=== PATIENT | male | born 1990 | race Caucasian/White ===

== ENCOUNTER 2019-10-08 15:18 | Inpatient (IN) | payer SELFPAY ==
[~2019-10-08] VITALS: Ht 175.3 cm; Wt 68.5 kg
[~2019-10-08 15:18] MED LIST: ALBUTEROL SULF8.5 G1 INH; CLONIDINE0.1 MG GT
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
[2019-10-08 15:30] VITALS: BP 126/84
[2019-10-08] MEDS ORDERED: Thiamine HCl 100 MG in D5W 55 ML IVPB ONE (15:30)
[2019-10-08] MEDS ORDERED: Omnipaque-300 100ml vial INJ PRN (15:30)
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
[2019-10-08] MEDS ORDERED: LORazepam Inj 2mg/ml 1ml IM ONE (15:45)
[2019-10-08] MEDS ORDERED: LORazepam Inj 2mg/ml 1ml IV ONE (15:45)
--- NOTE | 2019-10-08 16:00 | NUR ---
ED Nurse Note: Ativan IM administered. Patient refused Zyprexa, JAMESD notified.
--- NOTE | 2019-10-08 16:20 | NUR ---
ED Nurse Note: Patient refusing to cooperate and not allowing to start IV. ERMD notified
--- NOTE | 2019-10-08 16:25 | NUR ---
ED Nurse Note: Patient states he cannot provide urine now. Urinal left at bedside
[2019-10-08] MEDS ORDERED: Albuterol ud Inhalation HHN ONE (16:45)
--- NOTE | 2019-10-08 16:50 | NUR ---
ED Nurse Note: Patient taken to CT
--- NOTE | 2019-10-08 17:01 | NUR ---
ED Nurse Note: Patient returned from CT
--- NOTE | 2019-10-08 17:09 | NUR ---
ED Nurse Note: Covid swab collected and sent to lab
--- NOTE | 2019-10-08 17:49 | Diagnostic Imaging Report ---
Indication: Increased lower abdominal pain and discomfort Technique: Spiral acquisitions obtained through the abdomen and pelvis. No oral contrast utilized, per emergency room physician request No IV contrast utilized, per referring physician request.. Multiplanar reconstructions were generated. Total dose length product 251 mGycm. CTDIvol(s) 4 mGy. Dose reduction achieved using automated exposure control Comparison: None Findings: Exam is very limited, due to lack of oral enteric contrast, diffuse soft tissue edema limiting enteric soft tissue contrast resolution. No evidence of diverticulosis or diverticulitis. The appendix is not definitely visualized, but no findings to suggest acute appendicitis are evident. There is a small amount of free intraperitoneal fluid. The distal esophagus demonstrates mild wall thickening. The stomach is very distended. The duodenum is also distended. The proximal jejunum is distended. Not there is diffuse edema of the mesenteric fat particularly fluid-filled, however. No definite transition point is demonstrated. Lack of IV contrast limits assessment of the solid organs. The liver, gallbladder, bile ducts, pancreas, spleen, adrenals, kidneys are unremarkable. The bladder is mildly distended. There is bilateral inguinal adenopathy. There is bilateral iliac chain and retroperitoneal lymphadenopathy. There is mesenteric root lymphadenopathy. There is a moderate left pleural effusion. The lung bases are largely clear except for some compressive atelectasis at the left lung base. There is thoracolumbar dextroscoliotic deformity. There is diffuse edema of the subcutaneous fat. Impression: Very limited exam, as described Evidence of anasarca, with diffuse edema of the subcutaneous and mesenteric fat, as well as left pleural effusion and ascites fluid. Distended stomach, duodenum, and proximal jejunum, without definite downstream transition point. Findings could represent partial small bowel obstruction, or could be on the basis of inflammatory changes. Extensive lymphadenopathy, with enlarged bilateral inguinal, bilateral pelvic, retroperitoneal, and mesenteric root lymph nodes. This could be neoplastic or inflammatory Scoliosis Distended bladder Mildly thick-walled distal esophagus, could indicate esophagitis The CT scanner at [facility] is accredited by the [employer] [place] [employer] and the scans are performed using protocols designed to limit radiation exposure to as low as reasonably achievable to attain images of sufficient resolution adequate for diagnostic evaluation.
[2019-10-08 17:54] VITALS: BP 128/81
--- NOTE | 2019-10-08 18:30 | NUR ---
ED Nurse Note: Called lab to draw blood, patient refused blood draw when economic development coordinator at bedside. ERMD aware. Patient resting in bedd currently with eyes closed
--- NOTE | 2019-10-08 19:18 | NUR ---
HAND-OFF: Report given to Radha SANCHEZ.
--- NOTE | 2019-10-08 19:28 | NUR ---
Nurse Note: Report received from LAURA White. Pt asleep, arousable, no signs of distress. Pt now attached to library monitor. Pt is refusing all medical treatment; pt unwilling to cooperate. Pt stated "you do not need my blood. Just leave me alone." Pt refuses to wear mask. Pt denies pain. Pt appears unkept, poor hygene. All safety measures met; will conitnue to ian.
[2019-10-08 19:35] VITALS: BP 137/88
[2019-10-08 20:58] LABS: BILIRUBIN, URINE NEGATIVE (NEGATIVE); COLOR,URINE PALE YELLOW; GLUCOSE, URINE (UA) 3+ (NEGATIVE); KETONES,URINE 1+ (NEGATIVE); LEUKOCYTE ESTERASE ,URINE NEGATIVE (NEGATIVE); NITRITE,URINE NEGATIVE (NEGATIVE); PH,URINE 6.5 (4.5-8.0); PROTEIN,URINE 4+ (NEGATIVE); UROBILINOGEN,URINE NORMAL MG/DL (0.0-1.0)
[2019-10-08 20:59] LABS: HEMATOCRIT 22.6 % (42.0-52.0); HEMOGLOBIN 7.2 G/DL (14.2-18.0); MEAN CORPUSCULAR VOLUME 76 FL (80-99); PLATELET COUNT 307 K/UL (150-450); RED BLOOD COUNT 2.97 M/UL (4.70-6.10); RED CELL DISTRIBUTION WIDTH 19.7 % (11.6-14.8); WHITE BLOOD COUNT 8.6 K/UL (4.8-10.8)
[2019-10-08 21:00] LABS: APPEARANCE,URINE SLIGHTLY CLOUDY
--- NOTE | 2019-10-08 21:00 | NUR ---
Nurse Note: Pt arousable, denies pain, n/v, acute resp distress. Pt agrees to blood draw, IV access, medical treatment. 24 gauge IV established on RT AC; patent. Blood and urine collected; sent to lab. VSS. All safety measures met; will continue to monitor.
[2019-10-08 21:11] LABS: ANION GAP 8 mmol/L (5-15); BLOOD UREA NITROGEN 18 mg/dL (7-18); CALCIUM 7.2 MG/DL (8.5-10.1); CARBON DIOXIDE 20 MMOL/L (21-32); CHLORIDE 113 MMOL/L (98-107); CREATININE 3.4 MG/DL (0.55-1.30); POTASSIUM 3.1 MMOL/L (3.5-5.1); SODIUM 141 MMOL/L (136-145)
[2019-10-08 21:15] LABS: ALANINE AMINOTRANSFERASE 7 U/L (12-78); ALBUMIN < 0.6 G/DL (3.4-5.0); ALKALINE PHOSPHATASE 93 U/L (46-116); ASPARTATE AMINO TRANSFERASE 18 U/L (15-37); BILIRUBIN,TOTAL < 0.1 MG/DL (0.2-1.0)
[2019-10-08 22:10] VITALS: BP 104/86
--- NOTE | 2019-10-08 22:26 | NUR ---
Nurse Note: Gave report to LAURA Doty for continuity of care. All safety measures met; will endorse care.
[2019-10-08] MEDS ORDERED: LORazepam 1mg tab ORAL PRN (22:45)
[2019-10-08] MEDS: Heparin 5000 units/ml inj SUBQ SCH (22:45)
[2019-10-08] MEDS ORDERED: Morphine Sulfate 2mg/ml Inj(IV/IM USE ONLY) IVP PRN (22:45)
[2019-10-08] MEDS ORDERED: Miralax 17gm pkt ORAL PRN (22:45)
[2019-10-08] MEDS ORDERED: Zolpidem 5mg tab ORAL PRN (22:45)
--- NOTE | 2019-10-08 23:10 | NUR ---
NURSE NOTES: Patient admitted from ER via gurney. AOx3, appears disheveled. Belongings verified including own wheelchair. Refused complete skin assessment at this time, wants to be covered completely with blanket. Visible skin appears very dry with skin flaking and covered with black dirt. Patient oriented to new room and unit. Urinal and call light provided. Instructed to call for assistance. Admission orders entered by Dr. Olmstead. Noted and will carry out.
[2019-10-08] MEDS ORDERED: dilaudid ORAL (23:18)
[2019-10-09] VITALS: BP 129/81
[2019-10-09 04:00] VITALS: BP 121/68
[2019-10-09] MEDS: Morphine Sulfate 4mg/ml Inj (IV USE ONLY) IVP PRN ×2 (04:02→21:03)
--- NOTE | 2019-10-09 07:26 | NUR ---
NURSE HAND-OFF: Important Events on Shift:[new admit, medicated for pain and anxiety] Patient Status: [stable, sleeping] Diet: [Full liquid] Pending Orders: [] Pending Results/Labs:[refused lab draw in AM] Pending MD notification:[] Latest Vital Signs: Temperature 98.1 , Pulse 110 , B/P 121 /68 , Respiratory Rate 22 , O2 SAT 98 , Room Air, O2 Flow Rate . Vital Sign Comment: [stable] Latest Sow Fall Score: 35 Fall Risk: Medium Risk Safety Measures: Call light Within Reach, Bed Alarm Zone 1, Side Rails Side Rails x2, Bed position Low and Locked. Fall Precautions: Patient Fall Education Report given to [J Luis].
--- NOTE | 2019-10-09 07:43 | NUR ---
NURSE NOTES: patient is in the bed asleep and arousable. respiration is even and unlabored. patient stated that he wants to sleep and rest. no acute distress noted. call light is within reach.
[2019-10-09] MEDS: Heparin 5000 units/ml inj SUBQ SCH ×3 (09:00→21:02)
--- NOTE | 2019-10-09 09:10 | NUR ---
NURSE NOTES: Phlebotomy at the bed side, attempted to draw blood for AM lab. pt refuses. RN encouraged pt to allow blood draw, pt continues to refuse, states "I don't want that." RN encouraged pt to verbalize his feelings and concerns, says "I don't want it today."
--- NOTE | 2019-10-09 09:35 | NUR ---
NURSE NOTES: PT refuses CT scan, says "come back tomorrow morning." RN educated pt the purpose of receiving ct scan as ordered, pt is non-compliant.
--- NOTE | 2019-10-09 10:00 | NUR ---
NURSE NOTES: PT refuses all AM medications x 3. Benefits of medications explained to patient. pt remained non-compliant.
--- NOTE | 2019-10-09 10:20 | NUR ---
NURSE NOTES: Dr Dyllan Olmstead made rounds and saw pt. notified doctor about patient's non-compliant with care. MD says "if pt does not comply, there is no point being in the hospital," "continue to monitor for now."
[2019-10-09 12:00] VITALS: BP 129/83
--- NOTE | 2019-10-09 13:29 | Diagnostic Imaging Report ---
EXAM: US Duplex Bilateral Lower Extremities Veins CLINICAL HISTORY: SCREEN TECHNIQUE: Real-time duplex ultrasound scan of the bilateral lower extremity veins integrating B-mode two-dimensional vascular structure, Doppler spectral analysis, color flow Doppler imaging and compression. COMPARISON: No relevant prior studies available. FINDINGS: Right deep veins: Unremarkable. No DVT in the right common femoral, femoral, proximal deep femoral or popliteal veins. The veins demonstrate normal color flow, are normally compressible, with normal phasic flow and/or augmentation response. Right superficial veins: Unremarkable. Left deep veins: Unremarkable. No DVT in the left common femoral, femoral, proximal deep femoral or popliteal veins. The veins demonstrate normal color flow, are normally compressible, with normal phasic flow and/or augmentation response. Left superficial veins: Unremarkable. Soft tissues: No popliteal cyst. IMPRESSION: No evidence of DVT in the visualized venous segments of bilateral lower extremities.
--- NOTE | 2019-10-09 13:39 | Diagnostic Imaging Report ---
EXAM: US Retroperitoneal Complete, Renal CLINICAL HISTORY: RENAL-A TECHNIQUE: Real-time complete ultrasound of the retroperitoneum with image documentation. COMPARISON: No relevant prior studies available. FINDINGS: Aorta: Visualized portions of the aorta appear unremarkable. Inferior vena cava: Visualized portions of the IVC appear unremarkable. Right kidney: Right kidney measures 13.1 x 5.9 x 4.8 cm. Echogenic parenchyma. Normal cortical thickness. No visible parenchymal lesions. No visible stones. No hydronephrosis. Left kidney: Left kidney measures 11.9 x 5.6 x 5.0 cm. Echogenic parenchyma. Normal cortical thickness. No visible parenchymal lesions. No visible stones. No hydronephrosis. Bladder: Urinary bladder has a prevoid volume of 537 cc. Free fluid: Mild volume free fluid/ascites. Pleural space: Bilateral pleural effusions incidentally noted. IMPRESSION: 1. Bilateral echogenic kidneys, consistent with medical renal disease. No hydronephrosis. 2. Mild volume free fluid/ascites. 3. Bilateral pleural effusions.
--- NOTE | 2019-10-09 13:53 | NUR ---
NURSE NOTES: pt is on full-liquid diet, requested for a sandwich. Called Dr. Dyllan Olmstead and made aware. MD ordered to change diet to regular mechanical soft-easy chew diet. order is noted and communicated.
--- NOTE | 2019-10-09 15:00 | NUR ---
NURSE NOTES: Pt stated that he wants to be discharged, called Dr. Olmstead on phone and made aware. MD says "give him AMA paper to sign." RN educated and offered AMA form to patient. patient says "I will wait until morning." No acute distress noted on patient at this time. MD aware.
[2019-10-09 16:00] VITALS: BP 126/78
--- NOTE | 2019-10-09 16:29 | Consultation ---
DATE OF CONSULTATION: 10/09/2019 HEMATOLOGY/ONCOLOGY CONSULTATION CONSULTING PHYSICIAN: Bernice Worthy MD REFERRING PHYSICIAN: Dyllan Olmstead MD REASON FOR CONSULTATION: Adenopathy and pleural effusion. HISTORY OF PRESENT ILLNESS: Please note the patient is an extremely poor historian. He is refusing to give me any information. The patient is homeless and extremely disheveled. The history and examination have been extremely limited due to the fact that the patient is not allowing me to talk to him, only very limited history from him and examination has also been extremely limited. The patient is a gentleman, born on 1990. The patient apparently presented to [facility] with shortness of breath and abdominal discomfort. Upon evaluation in the emergency room, the patient has undergone CT scan of the abdomen and pelvis without contrast on October 08, 2019. This study has demonstrated very limited examination, evidence of anasarca with diffuse edema of the subcutaneous, mesenteric fat as well as left pleural effusion and ascites. Distended stomach, duodenum, and proximal jejunum without definite downstream transition point. Findings could represent partial small-bowel obstruction or could be, on the basis of inflammatory changes, extensive lymphadenopathy with enlarged bilateral inguinal and bilateral pelvic, retroperitoneal, mesenteric lymph nodes noted, could be neoplastic or inflammatory, scoliosis was noted, distended bladder was noted, thickened esophagus has been noted, could indicate esophagitis or other etiology. The patient's laboratory data has noted white count 8.6, hemoglobin has been as low as 7.6 with an MCV of 76, and platelet count of 307,000; neutrophil count is 61%. INR of 1, PTT of 21. Chemistry has demonstrated potassium of 3.1, sodium 141, calcium 7.2, AST 18, ALT 7, alkaline phosphatase of 93. Albumin of less than 0.6. Lipase of 118. Glucose of 94. Toxicology has been noted to be negative. Urinalysis has demonstrated 5-10 red blood cells and 2-4 white blood cells. PAST MEDICAL HISTORY: The patient is unable and is not willing to give me any history. PAST SURGICAL HISTORY: Unable to obtain from the patient. FAMILY HISTORY: Unable to obtain from the patient. SOCIAL HISTORY: The patient is homeless, extremely disheveled, poor historian. Does not give any history. REVIEW OF SYSTEMS: HEENT: The patient is not willing to talk. The patient, however, denies any severe headaches. PULMONARY: The patient does complain of some shortness of breath. GASTROINTESTINAL: The patient does complain of abdominal pain. NEUROLOGIC: The patient does complain of generalized weakness, however, he is not giving me any other information. PSYCHIATRIC: The patient is not giving me any history. PHYSICAL EXAMINATION: GENERAL: The patient is an extremely disheveled gentleman, who is not willing to speak to me, giving only very limited information. The patient is scratching himself allover. VITAL SIGNS: The patient has a temperature of 98.1, pulse of 110, respiratory rate of 22, blood pressure 121/68, and pulse-oximetry of 98%. HEENT: Sclerae anicteric. CHEST: Decreased breath sounds. ABDOMEN: Somewhat distended and tender. No rebound. EXTREMITIES: Edema bilaterally. SKIN: There is diffuse rash over bilateral lower extremities as well as neck region. LYMPHATICS: There is palpable adenopathy in the groin area. LABORATORY AND DIAGNOSTIC DATA: Laboratory as well as investigation as noted above. ASSESSMENT AND PLAN: 1. This is an unfortunate young gentleman who is homeless and not willing to give any type of history. The patient is not aware of any unfortunately. Therefore, we cannot assess the patient's past medical history appropriately; however, based on current CT scan, the patient has pleural effusions and ascites as well as adenopathy. The patient has presented significant renal failure and anemia. The patient needs to clearly undergo inguinal lymph node biopsy. I will have discussion with Dr. Olmstead in terms of having surgical team do excisional lymph node biopsy. The patient's LDH will be evaluated. 2. Anemia, severe. The patient will have full anemia workup. 3. Lower extremity edema. Venous duplex of lower extremity will be done to rule out DVT. 4. Rash. Consideration of ruling out for scabies the patient is scratching allover his body. 5. Renal failure. The patient will follow with Dr. Olmstead of Nephrology. 6. Possible psychiatric disorder. The patient is not very talkative at all. Consideration of underlying psychiatric disorder needs to be ruled out. 7. Code status. At this point in time, the patient is Full Code. The patient is not willing to discuss any matters in regard to code status. 8. Severe malnutrition with albumin that is extremely low. I appreciate this consult. Bernice Worthy M.D. DR: CLAIRE JOB#: [id number] CC:
--- NOTE | 2019-10-09 16:29 | NUR ---
CASE MANAGEMENT: INITIAL REVIEW 29YR OLD MALE FROM HOME CC:ABDOMINAL PAIN; ABD DISTENTION AND PERINEAL SWELLING X 1 DAY SI:SAROJ . ABDOMINAL PAIN . LEFT PLEURAL EFFUSION . DRUG ABUSE 96.8 124 16 126/84 99% ON RA H/H 7.2/22.6 K+ 3.1 CO2 20 CREAT 3.4 CA+ 7.2 T.GOLDIE < 0.1 ALB <0.6 PTT 21 URINE CREAT 26.3 URIN RANDOM NA >250 IS:IV THIAMINE HCI X1 ZYPREXA PO X1 ATIVAN IM X1 ALBUTEROL HHN X[address] ABD- Evidence of anasarca, with diffuse edema of the subcutaneous and mesenteric fat, as well as left pleural effusion and ascites fluid. Distended stomach, duodenum, and proximal jejunum, without definite downstream transition point. Findings could represent partial small bowel obstruction, or could be on the basis of inflammatory changes.Extensive lymphadenopathy, with enlarged bilateral inguinal, bilateral pelvic,retroperitoneal, and mesenteric root lymph nodes. This could be neoplastic or inflammatory. Scoliosis. Distended bladder. Mildly thick-walled distal esophagus, could indicate esophagitis VENOUS DUPLEX -No evidence of DVT in the visualized venous segments of bilateral lower extremities. US RENAL-Bilateral echogenic kidneys, consistent with medical renal disease. No hydronephrosis. Mild volume free fluid/ascites.Bilateral pleural effusions. \: [facility]G UN[facility] DCP: HOME WHEN STABLE CASE MANAGEMENT: REVIEW 10/09/19 SI:ABDOMINAL PAIN . LEFT PLEURAL EFFUSION . DRUG ABUSE 96.8 105 18 129/83 100% ON RA IS:IV MORPHINE SULFATE IV ATIVAN Q4HR/PRN HEPARIN Q3HR/PRN \: [facility]E [facility]G UNIT DCP: HOME WHEN STABLE PLAN: SW CONSULT
--- NOTE | 2019-10-09 19:10 | NUR ---
NURSE NOTES: Received a patient awake, A&O x3-4, and verbal. pt has no sob,pain,fever, and cough at the moment. Iv is intact and asymptomatic. According the previous nurse pt is non-compliant, I will educate the pt more. Bed is in the lowest position,locked and call light within reach. We will keep monitoring the pt.
[2019-10-09 20:00] VITALS: BP 126/86
--- NOTE | 2019-10-09 20:14 | History and Physical Report ---
DATE OF ADMISSION: 10/08/2019 CHIEF COMPLAINT: Abdominal pain as well as scrotal pain. HISTORY OF PRESENT ILLNESS: This is a 29-year-old male who is homeless. He came to the emergency room yesterday for the above complaints, was found to have multiple abnormalities. On his labs, he was anemic with a hematocrit of 22.6 with hemoglobin 7.2. He had also hypokalemia with potassium 3.1, and serum creatinine is up to 3.4. The patient denies taking any drugs and indeed there is a tox screen was negative. PAST MEDICAL HISTORY: History of hypertension and asthma. SOCIAL HISTORY: As mentioned the patient is homeless, very disheveled, in poor hygiene. He denies smoking or alcohol abuse. REVIEW OF SYSTEMS: As above. PHYSICAL EXAMINATION: GENERAL: The patient is a 29-year-old male. He looks older than stated age. VITAL SIGNS: Blood pressure 129/83, pulse 105, temperature 96.8, and respirations 18. HEENT: Pale conjunctivae. Anicteric sclerae. NECK: Supple. LUNGS: Clear to auscultation. HEART: S1, S2 without murmurs or rubs. ABDOMEN: Distended. EXTREMITIES: Bilateral pedal edema. LABORATORY FINDINGS: CBC shows WBC of 8600, hematocrit 22.6, hemoglobin 7.2, and platelet is 307,000. Chemistry panel shows serum sodium 141, potassium 3.1, chloride 113, CO2 20, BUN is 18, creatinine 3.4, glucose is 94. Lipase is 118. The UA shows 4+ protein, 5 to 10 RBCs per high-power field. ASSESSMENT: This is a 29-year-old male who was admitted with abdominal pain. He has also extensive lymphadenopathy with enlarged bilateral pelvic retroperitoneal mesenteric root lymph nodes, question of neoplastic or inflammatory process. He has acute renal failure. Again, it is unclear the etiology. He does have significant proteinuria, so he may have some form of glomerulonephritis. He does not have any history of diabetes, which would account for his proteinuria and renal failure. PLAN: The patient was already seen by Dr. Worthy in Oncology consultation. Renal ultrasound will be ordered to make sure the patient has any obstruction. He will likely need some lymph node biopsy if he agrees for the diagnosis. Labs will be followed and further plans will be made based on those results. Dyllan Olmstead M.D. DR: Santana JOB#: [id number] CC:
--- NOTE | 2019-10-09 22:00 | NUR ---
NURSE NOTES: Pt asked for pain medication and i tried to give 4mg ivp morphine. However, pt iv is infiltrated. I asked him if i can start another iv and he refused. I wasted the medication.
[2019-10-10] VITALS: BP 133/91
[2019-10-10 04:00] VITALS: BP 128/75
[2019-10-10 06:00] VITALS: BP 128/75
--- NOTE | 2019-10-10 07:10 | NUR ---
NURSE HAND-OFF: Important Events on Shift: pt is non-complaint . Refused everything. Iv is not working and refused to get one` Patient Status: stable Diet: regular Pending Orders: na Pending Results/Labs:bmp,cbc Pending MD notification: Latest Vital Signs: Temperature 97.5 , Pulse 90 , B/P 128 /75 , Respiratory Rate 19 , O2 SAT 98 , Room Air, O2 Flow Rate . Vital Sign Comment: Latest Sow Fall Score: 35 Fall Risk: Medium Risk Safety Measures: Call light Within Reach, Bed Alarm Zone 1, Side Rails Side Rails x3, Bed position Low and Locked. Fall Precautions: Patient Fall Education Report given to LAURA DAVID.
--- NOTE | 2019-10-10 07:15 | NUR ---
NURSE NOTES: WALKING ROUNDS DONE WITH NIGHT RN. PATIENT ASLEEP IN BED. RR EVENLY SPACED. BED IN LOW AND LOCKED POSITION. CALL LIGHT WITHIN REACH.
--- NOTE | 2019-10-10 10:29 | NUR ---
CASE MANAGEMENT: REVIEW 10/10/19 SI:ABDOMINAL PAIN . LEFT PLEURAL EFFUSION . DRUG ABUSE 97.5 90 19 128/75 98% ON RA labs in process IS:PROTONIX PO QD HEPARIN SQ BID ATIVAN Q4HR/PRN \: 3E MED SURG UNIT DCP: HOME WHEN STABLE PLAN: NEURO CHECKS SW CONSULT
[2019-10-10] MEDS: Heparin 5000 units/ml inj SUBQ SCH (10:50)
--- NOTE | 2019-10-10 11:12 | NUR ---
NURSE NOTES: PATIENT AWAKE REQUESTING 2ND BREAKFAST TRAY AND PAIN MEDS BUT DENIES PAIN. AGREED TO TAKE AM MEDS AN HAVE LABS DRAWN TODAY. DR. TOLBERT SAW PATIENT AND REQUESTED TO HAVE SOCIAL WORK FIND A HOMELESS JAIL FOR PATIENT. ORDER PLACED. INFORMED CHARGE NURSE. PER DR. TOLBERT WILL WAIT TO DISCHARGE ONCE DENTURES LAB TECHNICIAN FINDS JAIL.
[2019-10-10 11:32] VITALS: BP 128/84
--- NOTE | 2019-10-10 14:20 | NUR ---
NURSE NOTES: AMA PATIENT DECIDED TO LEAVE AMA. STATED THEY NEEDED TO GO. EXPLAINED TO PATIENT THE RISKS FACTORS LEAVING AMA. VERBALIZED UNDERSTANDING. SIGNED FORM. ALL BELONGINGS WITH PATIENT; REFUSED TO SIGN BELONGINGS LIST. PLACED CALL TO DR. TOLBERT. AWAITING RETURN CALL.
--- NOTE | 2019-10-12 08:32 | Discharge Summary ---
Discharge Summary Discharge Summary _ DATE OF ADMISSION: 10/08/2019 DATE OF DISCHARGE: 10/10/2019 Patient left AGAINST MEDICAL ADVICE REASON FOR ADMISSION: 29 years old male, homeless, with past medical history of hypertension and asthma, presented to emergency department for abdominal and scrotal pain and found to have multiply abnormalities. Patient was anemic with hemoglobin 7.2 ,hematocrit 22.6 . Patient was hypokalemic with potassium 3.1 and serum creatinine 3.4. Patient denied taking any drugs. Urine toxicology screen was negative. Urinalysis revealed +4 protein , +3 glucose ,+1 ketones, no evidence of UTI. CT scan of the abdomen and pelvis revealed evidence of anasarca with diffuse edema of the subcutaneous and mesenteric fat as well as the left pleural effusion and ascites fluid. Extensive lymphadenopathy with enlarged bilateral inguinal, bilateral pelvic, retroperitoneal and mesenteric root lymph nodes. This could be neoplastic or inflammatory. Distended stomach, duodenum and proximal jejunum without definite downstream transition point. Finding could represent partial small bowel obstruction or could be on the basis of inflammatory changes. In emergency department patient received Lasix ,Ativan, thiamine, albuterol inhaler, and admitted for further management. Rapid COVID-19 was negative. CONSULTANTS: order department supervisor/oncologist Dr. Worthy [facility] COURSE: Patient admitted to medical surgical floor. Pain management was addressed as needed. Patient started on Lasix. DVT and GI prophylaxis provided Coffee Attendant /oncologist seen and evaluated patient and recommended excisional lymph node biopsy. LDH was ordered. Anemia work-up was in process. Venous duplex bilateral lower extremity was done due to bilateral lower extremity edema and revealed no evidence of acute DVT. Renal ultrasound showed bilateral echogenic kidneys , consistent with medical renal disease, no hydronephrosis . Bilateral pleural effusion . Patient was treated for presumed scabies . Recommended psychiatric evaluation due to patient unwillingness to participate in medical treatment. On 10/09 patient decided to leave AGAINST MEDICAL ADVICE. The risks and consequences of signing AGAINST MEDICAL ADVICE were discussed with patient in detail. Patient verbalized understanding, nevertheless signed AMA form and left. FINAL DIAGNOSES: Abdominal pain Extensive lymphadenopathy, possible neoplastic versus inflammatory process Acute renal failure on chronic kidney disease ( per imaging) Homeless Severe anemia Lower extremity edema Rash status post treatment for presumed scabies Possible psychiatric disorder I have been assigned to dictate discharge summary for this account. I was not involved in the patient's management. Lorri Laurent NP Oct 12, 2019 08:32
== END 2019-10-10 14:30 | disposition left against medical advice (07) | DRG 698 ==
LOC: EDBD 15:18 → EMR 15:30 → 4E 18:48 → EDBEDREQ 21:31
DX: N00.9 Acute nephritic syndrome with unspecified morphologic changes (principal); E43 Unspecified severe protein-calorie malnutrition; R10.9 Unspecified abdominal pain; N17.9 Acute kidney failure, unspecified; R59.1 Generalized enlarged lymph nodes; D49.9 Neoplasm of unspecified behavior of unspecified site; Z59.0 Homelessness; D64.9 Anemia, unspecified; E87.6 Hypokalemia; B86 Scabies; R60.9 Edema, unspecified; F99 Mental disorder, not otherwise specified
CPT/HCPCS: 36415; 74176; 76770; 80053; 80307; 81003; 82044; 82570; 83690; 84165; 84300; 85007; 85025; 85610; 85730; 93970; 94640; 96372; 96374; 96375; 99285; U0002